=== PATIENT | female | born 1930 | race Caucasian/White ===

== ENCOUNTER 2017-06-19 10:32 | Inpatient (IN) | payer MEDICARE ==
[~2017-06-19] VITALS: Ht 152.4 cm; Wt 52.4 kg
[~2017-06-19 10:32] MED LIST: FLUC100T8 PO; LISI1TAB9 PO; LOVA20TA2 PO; OMEP20CA4 PO; ONDA4TAB6 PO
[2017-06-19] MEDS ORDERED: normal saline 1000ML IV soln IVB ONE ×2 (11:10→12:00)
[2017-06-19 11:28] LABS: BASOPHILS # (AUTO) 0.1 X10'3 (0-0.2); BASOPHILS % (AUTO) 0.4 % (0-1); EOSINOPHILS # (AUTO) 0.2 X10'3 (0-0.9); EOSINOPHILS % (AUTO) 1.8 % (0-6); HEMATOCRIT 34.5 % (35.0-45.0); HEMOGLOBIN 11.3 g/dl (12.0-16.0); LYMPHOCYTES % (AUTO) 7.5 % (21-51); MEAN CORPUSCULAR HEMOGLOBIN 31.1 PG (27.0-31.0); MEAN CORPUSCULAR HGB CONC 32.8 % (33.0-36.5); MEAN CORPUSCULAR VOLUME 94.8 FL (78-98); MEAN PLATELET VOLUME 7.5 FL (7.4-10.4); MONOCYTES # (AUTO) 0.6 X10'3 (0-0.9); MONOCYTES % (AUTO) 4.6 % (2-12); NEUTROPHILS # (AUTO) 11.4 X10'3 (1.8-7.7); NEUTROPHILS % (AUTO) 85.7 % (42-75); PLATELET COUNT 198 X10'3 (140-440); RED BLOOD COUNT 3.64 X10'6 (4.20-5.60); RED CELL DISTRIBUTION WIDTH 13.8 % (11.5-14.5); WHITE BLOOD COUNT 13.3 X10'3 (4.5-11.0)
[2017-06-19 11:41] LABS: ALANINE AMINOTRANSFERASE 330 U/L (12-78); ALBUMIN 3.4 G/DL (3.4-5.0); ALBUMIN/GLOBULIN RATIO 1.1 (1.1-1.5); ALKALINE PHOSPHATASE 63 IU/L (46-116); ANION GAP 16 (8-16); ASPARTATE AMINO TRANSFERASE 963 U/L (10-37); BILIRUBIN,TOTAL 0.5 MG/DL (0.1-1.0); BLOOD UREA NITROGEN 69 MG/DL (7-18); BUN/CREATININE RATIO 24.3 (6.6-38.0); CALCIUM 9.4 MG/DL (8.5-10.1); CHLORIDE 108 MMOL/L (99-107); CREATININE 2.84 MG/DL (0.40-0.90); GLUCOSE 98 MG/DL (70-104); POTASSIUM 5.3 MMOL/L (3.5-5.1); SODIUM 138 MMOL/L (135-145); TOTAL PROTEIN 6.5 G/DL (6.4-8.2); eGFR 16 ML/MIN
[2017-06-19 11:57] LABS: TOTAL CARBON DIOXIDE 13.9 MMOL/L (24-32)
[2017-06-19 12:13] LABS: CLARITY,URINE CLEAR (Clear); COLOR,URINE YELLOW (Yellow); GLUCOSE, URINE NEGATIVE (Neg); KETONES,URINE NEGATIVE (Neg); LEUKOCYTE ESTERASE ,URINE SMALL (Neg); NITRITES, URINE NEGATIVE (Neg); OCCULT BLOOD,URINE LARGE (Neg); PH,URINE 5.5 (4.8-8.0); PROTEIN,URINE 30 mg/dl (Neg)
[2017-06-19 12:20] LABS: UA COLLECTION TYPE CLN CATCH MIDSTREAM
[2017-06-19 12:21] LABS: BACTERIA,URINE NONE SEEN /HPF (Neg); MUCUS STRANDS FEW /LPF (Neg); RBC,URINE 0-2 /HPF (0-2); SQUAMOUS EPITHELIAL CELL,UR FEW /LPF (FEW); TRANSITIONAL EPI CELLS,URINE MODERATE /HPF; WBC,URINE 0-4 /HPF (0-4)
[2017-06-19] MEDS ORDERED: magnesium 2GM in 50ml NS 50 ML IV PRN (14:10)
[2017-06-19] MEDS ORDERED: magnesium hydroxide 30ml (MOM) UD suspension PO PRN ×2 (14:10→17:20)
[2017-06-19] MEDS ORDERED: acetaminophen 325mg tablet PO PRN ×3 (14:10→17:20)
[2017-06-19] MEDS ORDERED: ondansetron/PF 4mg/2ml inj IV PRN (14:10)
[2017-06-19] MEDS ORDERED: magnesium 4gm in 100ml NS 100 ML IV PRN (14:10)
[2017-06-19] MEDS ORDERED: magnesium Cl slow-release 64mg tablet PO PRN (14:10)
[2017-06-19] MEDS ORDERED: mag hydrox/Alum hydrox/simeth 30ml oral suspension PO PRN (14:10)
[2017-06-19] MEDS ORDERED: bisacodyl 10mg suppository rectal RC PRN (14:10)
[2017-06-19] MEDS ORDERED: potassium Cl 40MEQ/NS 500ml 500 ML IV PRN ×2 (14:10)
[2017-06-19] MEDS ORDERED: potassium Cl 20 mEq SR tablet PO PRN ×4 (14:10→17:20)
[2017-06-19] MEDS ORDERED: sodium bicarbonate (8.4%) inj. 50 MEQ in sodium chloride 0.45% 1,000 ML IV SCH (14:15)
[2017-06-19 14:16] LABS: URINE AMPHETAMINE SCREEN NEGATIVE (Neg); URINE BARBITUATE SCREEN NEGATIVE (Neg); URINE BENZODIAZEPINES SCREEN NEGATIVE (Neg); URINE CANNABINOID SCREEN NEGATIVE (Neg); URINE COCAINE SCREEN NEGATIVE (Neg); URINE METHADONE SCREEN NEGATIVE (Neg); URINE OPIATE SCREEN NEGATIVE (Neg); URINE PHENCYCLIDINE SCREEN NEGATIVE (Neg)
[2017-06-19] MEDS ORDERED: nitroGLYCERIN 0.4mg SUBLingual tab SL PRN (14:35)
[2017-06-19 15:04] LABS: MYOGLOBIN 87520 ng/ml (9-82)
[2017-06-19 15:11] LABS: CREATINE KINASE > 100000 U/L (26-192)
[2017-06-19] MEDS: aspirin 81mg tablet.DR PO SCH (15:18)
[2017-06-19] MEDS ORDERED: furosemide 20 MG/2 ML vial IV SCH (16:35)
[2017-06-19] MEDS ORDERED: sodium bicarbonate (8.4%) 1 mEq/ml syringe IV STA (17:03)
[2017-06-19] MEDS ORDERED: sodium bicarbonate (8.4%) inj. 150 MEQ in dextrose 5%-water 1,000 ML IV SCH (17:05)
[2017-06-19] MEDS ORDERED: morphine sulfate 8 MG/ML SYRINGE IV PRN ×2 (17:20)
[2017-06-19] MEDS: K, MAG and/or Phos replacement - Verify level? MC SCH (17:20)
[2017-06-19 18:09] LABS: PHOSPHORUS 5.2 MG/DL (2.3-4.5)
[2017-06-19 18:22] LABS: MAGNESIUM 1.6 MG/DL (1.5-2.4)
[2017-06-19 18:50] LABS: CREATINE KINASE 23038 U/L (26-192)
[2017-06-19 18:56] LABS: MYOGLOBIN 39888 ng/ml (9-82)
[2017-06-19 19:00] VITALS: BP 140/89
[2017-06-19 20:00] VITALS: BP_SYST 114; BP_SYST 137; BP_SYST 173; BP_SYST 175; BP_DIAS 63; BP_DIAS 76; BP_DIAS 94
[2017-06-19] MEDS ORDERED: pantoprazole 40mg Tablet.DR PO SCH (20:00)
[2017-06-19] MEDS ORDERED: heparin, porcine 5000 units/ml vial SQ SCH (20:00)
[2017-06-19 20:33] LABS: ALBUMIN 2.6 G/DL (3.4-5.0); ANION GAP 11 (8-16); BLOOD UREA NITROGEN 65 MG/DL (7-18); BUN/CREATININE RATIO 27.1 (6.6-38.0); CALCIUM 8.4 MG/DL (8.5-10.1); CHLORIDE 113 MMOL/L (99-107); GLUCOSE 124 MG/DL (70-104); POTASSIUM 5.3 MMOL/L (3.5-5.1); SODIUM 140 MMOL/L (135-145); TOTAL CARBON DIOXIDE 15.7 MMOL/L (24-32); eGFR 19 ML/MIN
[2017-06-19] MEDS: docusate sod 100mg capsule PO SCH (20:34)
[2017-06-19] MEDS: metoprolol tartrate 12.5mg (1/2 tablet) PO SCH (20:34)
[2017-06-19 21:00] VITALS: BP 113/56
[2017-06-19 22:00] VITALS: BP 119/57
[2017-06-19 23:00] VITALS: BP 151/66
[2017-06-19] MEDS: enoxaparin 30mg/0.3ml syringe SUBCUT SCH (23:39)
[2017-06-19 23:49] LABS: ALBUMIN 2.5 G/DL (3.4-5.0); ANION GAP 9 (8-16); BLOOD UREA NITROGEN 61 MG/DL (7-18); BUN/CREATININE RATIO 26.2 (6.6-38.0); CALCIUM 8.4 MG/DL (8.5-10.1); CHLORIDE 114 MMOL/L (99-107); CREATININE 2.33 MG/DL (0.40-0.90); GLUCOSE 89 MG/DL (70-104); MAGNESIUM 1.6 MG/DL (1.5-2.4); PHOSPHORUS 4.8 MG/DL (2.3-4.5); POTASSIUM 5.3 MMOL/L (3.5-5.1); SODIUM 139 MMOL/L (135-145); eGFR 20 ML/MIN
[2017-06-20] VITALS (18 sets, daily range): BP systolic 91–151; BP diastolic 50–79
[2017-06-20] MEDS: sodium bicarbonate (8.4%) inj. 150 MEQ in dextrose 5%-water 1,000 ML IV SCH ×2 (01:45→11:10)
[2017-06-20 02:18] LABS: ALBUMIN 2.6 G/DL (3.4-5.0); ANION GAP 8 (8-16); BLOOD UREA NITROGEN 61 MG/DL (7-18); BUN/CREATININE RATIO 27.4 (6.6-38.0); CALCIUM 8.7 MG/DL (8.5-10.1); CHLORIDE 114 MMOL/L (99-107); CREATININE 2.23 MG/DL (0.40-0.90); GLUCOSE 78 MG/DL (70-104); POTASSIUM 5.3 MMOL/L (3.5-5.1); SODIUM 139 MMOL/L (135-145); TOTAL CARBON DIOXIDE 17.3 MMOL/L (24-32); eGFR 21 ML/MIN
[2017-06-20 03:03] LABS: CREATINE KINASE 15181 U/L (26-192)
[2017-06-20 03:13] LABS: MYOGLOBIN 24393 ng/ml (9-82)
[2017-06-20 04:22] LABS: BASOPHILS % (AUTO) 0.1 % (0-1); EOSINOPHILS # (AUTO) 0.2 X10'3 (0-0.9); EOSINOPHILS % (AUTO) 2.2 % (0-6); HEMOGLOBIN 8.4 g/dl (12.0-16.0); LYMPHOCYTES # (AUTO) 0.8 X10'3 (1.1-4.8); LYMPHOCYTES % (AUTO) 11.2 % (21-51); MEAN CORPUSCULAR HEMOGLOBIN 31.8 PG (27.0-31.0); MEAN CORPUSCULAR HGB CONC 33.7 % (33.0-36.5); MEAN CORPUSCULAR VOLUME 94.3 FL (78-98); MEAN PLATELET VOLUME 8.4 FL (7.4-10.4); MONOCYTES # (AUTO) 0.3 X10'3 (0-0.9); MONOCYTES % (AUTO) 4.3 % (2-12); NEUTROPHILS # (AUTO) 6.1 X10'3 (1.8-7.7); NEUTROPHILS % (AUTO) 82.2 % (42-75); PLATELET COUNT 143 X10'3 (140-440); RED BLOOD COUNT 2.66 X10'6 (4.20-5.60); RED CELL DISTRIBUTION WIDTH 13.4 % (11.5-14.5); WHITE BLOOD COUNT 7.4 X10'3 (4.5-11.0)
[2017-06-20 04:35] LABS: INR 1.1 INR; PARTIAL THROMBOPLASTIN TIME 29 SECONDS (22-32); PROTHROMBIN TIME 10.9 SECONDS (9.0-12.0)
[2017-06-20 04:38] LABS: ALANINE AMINOTRANSFERASE 252 U/L (12-78); ALBUMIN 2.3 G/DL (3.4-5.0); ALBUMIN/GLOBULIN RATIO 0.9 (1.1-1.5); ALKALINE PHOSPHATASE 44 IU/L (46-116); ANION GAP 11 (8-16); ASPARTATE AMINO TRANSFERASE 667 U/L (10-37); BILIRUBIN,TOTAL 0.4 MG/DL (0.1-1.0); BLOOD UREA NITROGEN 61 MG/DL (7-18); BUN/CREATININE RATIO 27.9 (6.6-38.0); CALCIUM 8.2 MG/DL (8.5-10.1); CHLORIDE 113 MMOL/L (99-107); CREATININE 2.19 MG/DL (0.40-0.90); GLUCOSE 96 MG/DL (70-104); MAGNESIUM 1.5 MG/DL (1.5-2.4); POTASSIUM 5.2 MMOL/L (3.5-5.1); SODIUM 141 MMOL/L (135-145); TOTAL CARBON DIOXIDE 17.3 MMOL/L (24-32); TOTAL PROTEIN 4.8 G/DL (6.4-8.2); eGFR 21 ML/MIN
[2017-06-20 06:22] LABS: PHOSPHORUS 3.9 MG/DL (2.3-4.5)
[2017-06-20 06:23] LABS: CREATINE KINASE 12284 U/L (26-192)
[2017-06-20 06:29] LABS: MYOGLOBIN 21601 ng/ml (9-82)
[2017-06-20] MEDS: K and/or MAG REPLACEMENT MC SCH (08:00)
[2017-06-20] MEDS: K, MAG and/or Phos replacement - Verify level? MC SCH (08:00)
[2017-06-20 08:32] LABS: ALBUMIN 2.5 G/DL (3.4-5.0); ANION GAP 9 (8-16); BLOOD UREA NITROGEN 56 MG/DL (7-18); BUN/CREATININE RATIO 27.1 (6.6-38.0); CALCIUM 8.6 MG/DL (8.5-10.1); CHLORIDE 113 MMOL/L (99-107); CREATININE 2.07 MG/DL (0.40-0.90); GLUCOSE 96 MG/DL (70-104); MAGNESIUM 1.6 MG/DL (1.5-2.4); PHOSPHORUS 3.9 MG/DL (2.3-4.5); POTASSIUM 4.7 MMOL/L (3.5-5.1); SODIUM 142 MMOL/L (135-145); eGFR 23 ML/MIN
[2017-06-20] MEDS: metoprolol tartrate 12.5mg (1/2 tablet) PO SCH (08:46)
[2017-06-20] MEDS: enoxaparin 30mg/0.3ml syringe SUBCUT SCH (08:46)
[2017-06-20] MEDS: aspirin 81mg tablet.DR PO SCH (08:47)
[2017-06-20] MEDS: docusate sod 100mg capsule PO SCH ×2 (08:47→20:30)
[2017-06-20] MEDS: pantoprazole 40mg Tablet.DR PO SCH (08:47)
[2017-06-20 08:50] LABS: CREATINE KINASE 12995 U/L (26-192)
[2017-06-20 09:12] LABS: MYOGLOBIN 23802 ng/ml (9-82)
[2017-06-20] MEDS: sodium bicarbonate (8.4%) inj. 100 MEQ in dextrose 5%-water 1,000 ML IV SCH (12:19)
[2017-06-21] VITALS: BP 122/59
[2017-06-21] MEDS: sodium bicarbonate (8.4%) inj. 100 MEQ in dextrose 5%-water 1,000 ML IV SCH ×2 (02:59→17:45)
[2017-06-21 03:03] LABS: PARTIAL THROMBOPLASTIN TIME 24 SECONDS (22-32); PROTHROMBIN TIME 10.5 SECONDS (9.0-12.0)
[2017-06-21 03:36] LABS: ALBUMIN 2.2 G/DL (3.4-5.0); ANION GAP 6 (8-16); BLOOD UREA NITROGEN 47 MG/DL (7-18); BUN/CREATININE RATIO 24.7 (6.6-38.0); CALCIUM 8.1 MG/DL (8.5-10.1); CHLORIDE 109 MMOL/L (99-107); CREATINE KINASE 11312 U/L (26-192); GLUCOSE 118 MG/DL (70-104); MAGNESIUM 1.5 MG/DL (1.5-2.4); PHOSPHORUS 3.3 MG/DL (2.3-4.5); POTASSIUM 4.4 MMOL/L (3.5-5.1); SODIUM 143 MMOL/L (135-145); TOTAL CARBON DIOXIDE 28.4 MMOL/L (24-32); eGFR 25 ML/MIN
[2017-06-21 03:57] LABS: MYOGLOBIN 21917 ng/ml (9-82)
[2017-06-21 07:00] VITALS: BP 155/66
[2017-06-21] MEDS: K and/or MAG REPLACEMENT MC SCH (08:00)
[2017-06-21] MEDS: K, MAG and/or Phos replacement - Verify level? MC SCH (08:00)
[2017-06-21] MEDS: aspirin 81mg tablet.DR PO SCH (08:48)
[2017-06-21] MEDS: traMADol 50MG tablet PO PRN (08:48)
[2017-06-21] MEDS: docusate sod 100mg capsule PO SCH ×2 (08:48→20:00)
[2017-06-21] MEDS: pantoprazole 40mg Tablet.DR PO SCH (08:48)
[2017-06-21] MEDS: enoxaparin 30mg/0.3ml syringe SUBCUT SCH (08:49)
[2017-06-21] MEDS: LACTOSE-FREE FOOD 237ML (BOOST) PO SCH ×3 (08:50→18:25)
[2017-06-21] MEDS ORDERED: pneumococcal 23-VAL P-sac vacc 25 mcg/0.5ml vial IMVAC ONE (10:00)
[2017-06-21 11:00] VITALS: BP 138/75
[2017-06-21 13:44] VITALS: BP_SYST 129; BP_SYST 152; BP_DIAS 70; BP_DIAS 79
[2017-06-21 20:00] VITALS: BP 147/68
[2017-06-21 23:30] VITALS: BP 153/74
[2017-06-22 05:00] VITALS: BP 162/72
[2017-06-22 06:25] LABS: BASOPHILS % (AUTO) 0.3 % (0-1); EOSINOPHILS # (AUTO) 0.2 X10'3 (0-0.9); EOSINOPHILS % (AUTO) 2.2 % (0-6); HEMATOCRIT 25.8 % (35.0-45.0); HEMOGLOBIN 8.8 g/dl (12.0-16.0); LYMPHOCYTES # (AUTO) 0.9 X10'3 (1.1-4.8); LYMPHOCYTES % (AUTO) 10.7 % (21-51); MEAN CORPUSCULAR HEMOGLOBIN 31.7 PG (27.0-31.0); MEAN CORPUSCULAR HGB CONC 33.9 % (33.0-36.5); MEAN CORPUSCULAR VOLUME 93.5 FL (78-98); MEAN PLATELET VOLUME 8.4 FL (7.4-10.4); MONOCYTES # (AUTO) 0.4 X10'3 (0-0.9); MONOCYTES % (AUTO) 4.5 % (2-12); NEUTROPHILS # (AUTO) 6.8 X10'3 (1.8-7.7); NEUTROPHILS % (AUTO) 82.3 % (42-75); PLATELET COUNT 147 X10'3 (140-440); RED BLOOD COUNT 2.76 X10'6 (4.20-5.60); RED CELL DISTRIBUTION WIDTH 13.8 % (11.5-14.5); WHITE BLOOD COUNT 8.2 X10'3 (4.5-11.0)
[2017-06-22 06:35] LABS: PARTIAL THROMBOPLASTIN TIME 26 SECONDS (22-32); PROTHROMBIN TIME 10.6 SECONDS (9.0-12.0)
[2017-06-22 06:55] LABS: ALANINE AMINOTRANSFERASE 378 U/L (12-78); ALBUMIN 2.2 G/DL (3.4-5.0); ALBUMIN/GLOBULIN RATIO 0.8 (1.1-1.5); ALKALINE PHOSPHATASE 50 IU/L (46-116); ANION GAP 4 (8-16); ASPARTATE AMINO TRANSFERASE 1146 U/L (10-37); BILIRUBIN,TOTAL 0.4 MG/DL (0.1-1.0); BLOOD UREA NITROGEN 37 MG/DL (7-18); BUN/CREATININE RATIO 20.6 (6.6-38.0); CALCIUM 8.7 MG/DL (8.5-10.1); CHLORIDE 104 MMOL/L (99-107); GLUCOSE 92 MG/DL (70-104); MAGNESIUM 1.2 MG/DL (1.5-2.4); PHOSPHORUS 2.9 MG/DL (2.3-4.5); POTASSIUM 4.7 MMOL/L (3.5-5.1); SODIUM 138 MMOL/L (135-145); TOTAL PROTEIN 5.1 G/DL (6.4-8.2); eGFR 27 ML/MIN
[2017-06-22] MEDS: K and/or MAG REPLACEMENT MC SCH ×2 (07:23→08:53)
[2017-06-22] MEDS: K, MAG and/or Phos replacement - Verify level? MC SCH ×2 (07:23→08:54)
[2017-06-22] MEDS: LACTOSE-FREE FOOD 237ML (BOOST) PO SCH ×3 (08:53→19:30)
[2017-06-22] MEDS: pantoprazole 40mg Tablet.DR PO SCH (09:07)
[2017-06-22] MEDS: docusate sod 100mg capsule PO SCH ×2 (09:07→20:40)
[2017-06-22] MEDS: aspirin 81mg tablet.DR PO SCH (09:07)
[2017-06-22] MEDS: enoxaparin 30mg/0.3ml syringe SUBCUT SCH (09:08)
[2017-06-22] MEDS: sodium bicarbonate (8.4%) inj. 100 MEQ in dextrose 5%-water 1,000 ML IV SCH (10:41)
[2017-06-22 11:00] VITALS: BP 145/70
[2017-06-22 11:05] VITALS: BP 162/72
[2017-06-22] MEDS: CefTRIAXone 1 gm/50ml D5W ADV 50 ML IV SCH (12:46)
[2017-06-22 20:00] VITALS: BP_SYST 154; BP_SYST 164; BP_DIAS 70; BP_DIAS 77
[2017-06-23] VITALS: BP 180/84
[2017-06-23] MEDS: normal saline 1000ml 1,000 ML IV SCH ×3 (01:59→22:08)
[2017-06-23 02:00] VITALS: BP 144/74
[2017-06-23 06:26] LABS: EOSINOPHILS % (AUTO) 2.5 % (0-6); HEMATOCRIT 27.3 % (35.0-45.0); HEMOGLOBIN 9.2 g/dl (12.0-16.0); LYMPHOCYTES % (AUTO) 7.5 % (21-51); MEAN CORPUSCULAR HEMOGLOBIN 31.5 PG (27.0-31.0); MEAN CORPUSCULAR HGB CONC 33.7 % (33.0-36.5); MEAN CORPUSCULAR VOLUME 93.5 FL (78-98); MEAN PLATELET VOLUME 8.4 FL (7.4-10.4); MONOCYTES % (AUTO) 3.3 % (2-12); NEUTROPHILS % (AUTO) 86.6 % (42-75); PLATELET COUNT 168 X10'3 (140-440); RED BLOOD COUNT 2.92 X10'6 (4.20-5.60); RED CELL DISTRIBUTION WIDTH 13.6 % (11.5-14.5); WHITE BLOOD COUNT 9.9 X10'3 (4.5-11.0)
[2017-06-23 06:27] LABS: BASOPHILS % (AUTO) 0.1 % (0-1); EOSINOPHILS # (AUTO) 0.2 X10'3 (0-0.9); LYMPHOCYTES # (AUTO) 0.7 X10'3 (1.1-4.8); MONOCYTES # (AUTO) 0.3 X10'3 (0-0.9); NEUTROPHILS # (AUTO) 8.6 X10'3 (1.8-7.7)
[2017-06-23 06:28] LABS: PARTIAL THROMBOPLASTIN TIME 27 SECONDS (22-32); PROTHROMBIN TIME 10.5 SECONDS (9.0-12.0)
[2017-06-23 06:41] LABS: ALANINE AMINOTRANSFERASE 494 U/L (12-78); ALBUMIN 2.3 G/DL (3.4-5.0); ALBUMIN/GLOBULIN RATIO 0.7 (1.1-1.5); ALKALINE PHOSPHATASE 58 IU/L (46-116); ANION GAP 8 (8-16); ASPARTATE AMINO TRANSFERASE 1311 U/L (10-37); BILIRUBIN,TOTAL 0.5 MG/DL (0.1-1.0); BLOOD UREA NITROGEN 35 MG/DL (7-18); BUN/CREATININE RATIO 20.2 (6.6-38.0); CALCIUM 9.2 MG/DL (8.5-10.1); CHLORIDE 102 MMOL/L (99-107); CREATININE 1.73 MG/DL (0.40-0.90); GLUCOSE 88 MG/DL (70-104); MAGNESIUM 1.3 MG/DL (1.5-2.4); PHOSPHORUS 3.8 MG/DL (2.3-4.5); POTASSIUM 4.5 MMOL/L (3.5-5.1); SODIUM 138 MMOL/L (135-145); TOTAL CARBON DIOXIDE 28.1 MMOL/L (24-32); TOTAL PROTEIN 5.5 G/DL (6.4-8.2); eGFR 28 ML/MIN
[2017-06-23 07:43] LABS: CREATINE KINASE 25129 U/L (26-192)
[2017-06-23 08:00] VITALS: BP 162/83
[2017-06-23] MEDS: CefTRIAXone 1 gm/50ml D5W ADV 50 ML IV SCH (08:16)
[2017-06-23] MEDS: enoxaparin 30mg/0.3ml syringe SUBCUT SCH (08:18)
[2017-06-23] MEDS: LACTOSE-FREE FOOD 237ML (BOOST) PO SCH ×3 (08:21→18:27)
[2017-06-23] MEDS: aspirin 81mg tablet.DR PO SCH (08:22)
[2017-06-23] MEDS: docusate sod 100mg capsule PO SCH ×2 (08:22→20:20)
[2017-06-23] MEDS: pantoprazole 40mg Tablet.DR PO SCH (08:22)
[2017-06-23 09:00] VITALS: BP_SYST 135; BP_SYST 139; BP_DIAS 75; BP_DIAS 76
[2017-06-23] MEDS ORDERED: normal saline 1000ml 1,000 ML IV ONE (10:45)
[2017-06-23 11:00] VITALS: BP 139/75
[2017-06-23 20:00] VITALS: BP 152/72
[2017-06-23] MEDS: magnesium Cl slow-release 64mg tablet PO PRN (23:03)
[2017-06-24] VITALS: BP 163/82
[2017-06-24] MEDS: normal saline 1000ml 1,000 ML IV SCH ×3 (05:03→21:46)
[2017-06-24 05:25] LABS: BASOPHILS % (AUTO) 0.2 % (0-1); EOSINOPHILS # (AUTO) 0.3 X10'3 (0-0.9); EOSINOPHILS % (AUTO) 3.1 % (0-6); HEMOGLOBIN 9.3 g/dl (12.0-16.0); LYMPHOCYTES # (AUTO) 0.8 X10'3 (1.1-4.8); LYMPHOCYTES % (AUTO) 9.7 % (21-51); MEAN CORPUSCULAR HGB CONC 33.1 % (33.0-36.5); MEAN CORPUSCULAR VOLUME 93.7 FL (78-98); MEAN PLATELET VOLUME 8.2 FL (7.4-10.4); MONOCYTES # (AUTO) 0.3 X10'3 (0-0.9); MONOCYTES % (AUTO) 3.5 % (2-12); NEUTROPHILS # (AUTO) 7.1 X10'3 (1.8-7.7); NEUTROPHILS % (AUTO) 83.5 % (42-75); PLATELET COUNT 182 X10'3 (140-440); RED BLOOD COUNT 2.99 X10'6 (4.20-5.60); RED CELL DISTRIBUTION WIDTH 13.4 % (11.5-14.5); WHITE BLOOD COUNT 8.5 X10'3 (4.5-11.0)
[2017-06-24 05:28] LABS: PARTIAL THROMBOPLASTIN TIME 25 SECONDS (22-32); PROTHROMBIN TIME 10.1 SECONDS (9.0-12.0)
[2017-06-24] MEDS ORDERED: LORazepam 2 mg/ml vial IM ONE (05:40)
[2017-06-24 05:44] LABS: ALANINE AMINOTRANSFERASE 568 U/L (12-78); ALBUMIN 2.3 G/DL (3.4-5.0); ALBUMIN/GLOBULIN RATIO 0.7 (1.1-1.5); ALKALINE PHOSPHATASE 60 IU/L (46-116); ANION GAP 10 (8-16); ASPARTATE AMINO TRANSFERASE 1092 U/L (10-37); BILIRUBIN,TOTAL 0.4 MG/DL (0.1-1.0); BLOOD UREA NITROGEN 34 MG/DL (7-18); BUN/CREATININE RATIO 20.7 (6.6-38.0); CALCIUM 9.3 MG/DL (8.5-10.1); CHLORIDE 108 MMOL/L (99-107); CREATININE 1.64 MG/DL (0.40-0.90); GLUCOSE 82 MG/DL (70-104); MAGNESIUM 1.2 MG/DL (1.5-2.4); PHOSPHORUS 3.7 MG/DL (2.3-4.5); POTASSIUM 4.7 MMOL/L (3.5-5.1); SODIUM 140 MMOL/L (135-145); TOTAL PROTEIN 5.6 G/DL (6.4-8.2); eGFR 30 ML/MIN
[2017-06-24] MEDS ORDERED: LORazepam 2 mg/ml vial IV ONE (06:10)
[2017-06-24] MEDS: pantoprazole 40mg Tablet.DR PO SCH (07:30)
[2017-06-24 08:00] VITALS: BP 150/106
[2017-06-24] MEDS: docusate sod 100mg capsule PO SCH ×2 (08:00→20:00)
[2017-06-24] MEDS: aspirin 81mg tablet.DR PO SCH (08:00)
[2017-06-24] MEDS: enoxaparin 30mg/0.3ml syringe SUBCUT SCH (08:00)
[2017-06-24] MEDS: CefTRIAXone 1 gm/50ml D5W ADV 50 ML IV SCH (08:44)
[2017-06-24] MEDS: LACTOSE-FREE FOOD 237ML (BOOST) PO SCH ×3 (08:45→18:09)
[2017-06-24] MEDS: magnesium Cl slow-release 64mg tablet PO PRN (09:09)
[2017-06-24 09:42] LABS: CREATINE KINASE 27707 U/L (26-192)
[2017-06-24 12:03] VITALS: BP 146/97
[2017-06-24] MEDS: traMADol 50MG tablet PO PRN (14:07)
[2017-06-24] MEDS ORDERED: normal saline 1000ml 1,000 ML IV ONE (14:40)
[2017-06-24] MEDS: lactobacillus rhamnosus 10,000 MMU CELLS/CAPSULE PO SCH (17:56)
[2017-06-24 20:00] VITALS: BP_SYST 152; BP_SYST 157; BP_DIAS 74; BP_DIAS 78
[2017-06-25] VITALS: BP_SYST 163; BP_SYST 171; BP_DIAS 80; BP_DIAS 96
[2017-06-25] MEDS: normal saline 1000ml 1,000 ML IV SCH ×5 (01:37→19:52)
[2017-06-25 05:33] LABS: PARTIAL THROMBOPLASTIN TIME 24 SECONDS (22-32); PROTHROMBIN TIME 10.7 SECONDS (9.0-12.0)
[2017-06-25 06:13] LABS: MAGNESIUM 1.1 MG/DL (1.5-2.4); PHOSPHORUS 3.3 MG/DL (2.3-4.5)
[2017-06-25 07:35] VITALS: BP 151/83
[2017-06-25] MEDS: LACTOSE-FREE FOOD 237ML (BOOST) PO SCH ×3 (08:00→18:17)
[2017-06-25] MEDS: docusate sod 100mg capsule PO SCH ×2 (10:22→19:48)
[2017-06-25] MEDS: CefTRIAXone 1 gm/50ml D5W ADV 50 ML IV SCH (10:25)
[2017-06-25] MEDS: lactobacillus rhamnosus 10,000 MMU CELLS/CAPSULE PO SCH ×2 (10:25→18:51)
[2017-06-25] MEDS: aspirin 81mg tablet.DR PO SCH (10:26)
[2017-06-25] MEDS: pantoprazole 40mg Tablet.DR PO SCH (10:26)
[2017-06-25] MEDS: magnesium Cl slow-release 64mg tablet PO PRN (10:27)
[2017-06-25] MEDS: enoxaparin 30mg/0.3ml syringe SUBCUT SCH (10:30)
[2017-06-25 11:00] VITALS: BP 160/84
[2017-06-25 11:35] LABS: ALANINE AMINOTRANSFERASE 564 U/L (12-78); ALBUMIN 2.4 G/DL (3.4-5.0); ALBUMIN/GLOBULIN RATIO 0.8 (1.1-1.5); ALKALINE PHOSPHATASE 57 IU/L (46-116); ASPARTATE AMINO TRANSFERASE 702 U/L (10-37); BILIRUBIN,TOTAL 0.3 MG/DL (0.1-1.0); BLOOD UREA NITROGEN 32 MG/DL (7-18); BUN/CREATININE RATIO 23.7 (6.6-38.0); CALCIUM 9.3 MG/DL (8.5-10.1); CHLORIDE 109 MMOL/L (99-107); CREATININE 1.35 MG/DL (0.40-0.90); POTASSIUM 4.6 MMOL/L (3.5-5.1); TOTAL CARBON DIOXIDE 21.5 MMOL/L (24-32); TOTAL PROTEIN 5.6 G/DL (6.4-8.2); eGFR 37 ML/MIN
[2017-06-25 11:40] LABS: ANION GAP 10 (8-16); GLUCOSE 104 MG/DL (70-104); SODIUM 140 MMOL/L (135-145)
[2017-06-25 12:39] LABS: CREATINE KINASE 11960 U/L (26-192)
[2017-06-25 14:00] VITALS: BP_SYST 124; BP_SYST 154; BP_SYST 187; BP_DIAS 77; BP_DIAS 79; BP_DIAS 87
[2017-06-25] MEDS ORDERED: normal saline 1000ml 1,000 ML IV ONE (14:35)
[2017-06-25 18:30] VITALS: BP 144/72
[2017-06-25] MEDS: traMADol 50MG tablet PO PRN (22:36)
[2017-06-26] VITALS: BP_SYST 123; BP_SYST 151; BP_SYST 163; BP_DIAS 74; BP_DIAS 79; BP_DIAS 80
[2017-06-26] MEDS: diphenhydrAMINE 25mg capsule PO PRN (00:30)
[2017-06-26] MEDS: normal saline 1000ml 1,000 ML IV SCH ×5 (03:13→21:44)
[2017-06-26 05:39] LABS: PARTIAL THROMBOPLASTIN TIME 22 SECONDS (22-32); PROTHROMBIN TIME 10.8 SECONDS (9.0-12.0)
[2017-06-26 06:00] LABS: ALANINE AMINOTRANSFERASE 456 U/L (12-78); ALBUMIN 2.1 G/DL (3.4-5.0); ALBUMIN/GLOBULIN RATIO 0.8 (1.1-1.5); ALKALINE PHOSPHATASE 48 IU/L (46-116); ANION GAP 10 (8-16); ASPARTATE AMINO TRANSFERASE 387 U/L (10-37); BILIRUBIN,TOTAL 0.3 MG/DL (0.1-1.0); BLOOD UREA NITROGEN 31 MG/DL (7-18); BUN/CREATININE RATIO 23.7 (6.6-38.0); CALCIUM 8.8 MG/DL (8.5-10.1); CHLORIDE 113 MMOL/L (99-107); CREATINE KINASE 4557 U/L (26-192); CREATININE 1.31 MG/DL (0.40-0.90); GLUCOSE 85 MG/DL (70-104); MAGNESIUM 1.1 MG/DL (1.5-2.4); PHOSPHORUS 3.2 MG/DL (2.3-4.5); POTASSIUM 4.8 MMOL/L (3.5-5.1); SODIUM 142 MMOL/L (135-145); TOTAL CARBON DIOXIDE 19.4 MMOL/L (24-32); TOTAL PROTEIN 4.9 G/DL (6.4-8.2); eGFR 38 ML/MIN
[2017-06-26 07:00] VITALS: BP 154/84
[2017-06-26] MEDS: lactobacillus rhamnosus 10,000 MMU CELLS/CAPSULE PO SCH ×2 (07:40→17:33)
[2017-06-26] MEDS: pantoprazole 40mg Tablet.DR PO SCH (07:40)
[2017-06-26] MEDS: docusate sod 100mg capsule PO SCH ×2 (07:41→20:00)
[2017-06-26] MEDS: CefTRIAXone 1 gm/50ml D5W ADV 50 ML IV SCH (07:41)
[2017-06-26] MEDS: enoxaparin 30mg/0.3ml syringe SUBCUT SCH (07:41)
[2017-06-26] MEDS: aspirin 81mg tablet.DR PO SCH (07:41)
[2017-06-26] MEDS: LACTOSE-FREE FOOD 237ML (BOOST) PO SCH ×3 (08:11→18:23)
[2017-06-26] MEDS: magnesium Cl slow-release 64mg tablet PO PRN (11:55)
[2017-06-26] MEDS ORDERED: magnesium 2GM in 50ml NS 50 ML IV PRN ×2 (12:00→12:05)
[2017-06-26] MEDS ORDERED: magnesium 4gm in 100ml NS 100 ML IV PRN (12:05)
[2017-06-26 14:20] VITALS: BP_SYST 111; BP_SYST 150; BP_SYST 162; BP_DIAS 72; BP_DIAS 80; BP_DIAS 96
[2017-06-26 19:30] VITALS: BP_SYST 126; BP_SYST 152; BP_SYST 157; BP_DIAS 70; BP_DIAS 73; BP_DIAS 78
[2017-06-26 23:00] VITALS: BP 170/88
[2017-06-26] MEDS: traMADol 50MG tablet PO PRN (23:41)
[2017-06-27] MEDS: diphenhydrAMINE 25mg capsule PO PRN (01:16)
[2017-06-27] MEDS: normal saline 1000ml 1,000 ML IV SCH ×3 (05:13→20:17)
[2017-06-27 05:44] LABS: MAGNESIUM 2.4 MG/DL (1.5-2.4); POTASSIUM 4.5 MMOL/L (3.5-5.1)
[2017-06-27 06:40] VITALS: BP 159/90
[2017-06-27] MEDS: aspirin 81mg tablet.DR PO SCH (07:25)
[2017-06-27] MEDS: pantoprazole 40mg Tablet.DR PO SCH (07:25)
[2017-06-27] MEDS: lactobacillus rhamnosus 10,000 MMU CELLS/CAPSULE PO SCH ×2 (07:25→17:29)
[2017-06-27] MEDS: docusate sod 100mg capsule PO SCH ×2 (07:25→20:20)
[2017-06-27] MEDS: enoxaparin 30mg/0.3ml syringe SUBCUT SCH (07:26)
[2017-06-27] MEDS: CefTRIAXone 1 gm/50ml D5W ADV 50 ML IV SCH (07:26)
[2017-06-27] MEDS: LACTOSE-FREE FOOD 237ML (BOOST) PO SCH ×3 (08:06→18:23)
[2017-06-27 11:00] VITALS: BP 134/69
[2017-06-27 12:41] LABS: ALBUMIN 2.6 G/DL (3.4-5.0); ANION GAP 11 (8-16); BLOOD UREA NITROGEN 25 MG/DL (7-18); BUN/CREATININE RATIO 18.4 (6.6-38.0); CALCIUM 9.1 MG/DL (8.5-10.1); CHLORIDE 110 MMOL/L (99-107); CREATINE KINASE 1865 U/L (26-192); CREATININE 1.36 MG/DL (0.40-0.90); GLUCOSE 92 MG/DL (70-104); POTASSIUM 4.5 MMOL/L (3.5-5.1); SODIUM 141 MMOL/L (135-145); TOTAL CARBON DIOXIDE 20.2 MMOL/L (24-32); eGFR 37 ML/MIN
[2017-06-27 19:20] VITALS: BP 160/73
[2017-06-27] MEDS: traMADol 50MG tablet PO PRN (19:30)
[2017-06-27 20:00] VITALS: BP_SYST 127; BP_SYST 138; BP_SYST 160; BP_DIAS 68; BP_DIAS 73; BP_DIAS 78
[2017-06-28 05:54] LABS: MAGNESIUM 1.8 MG/DL (1.5-2.4)
[2017-06-28 07:29] VITALS: BP 152/81
[2017-06-28] MEDS: CefTRIAXone 1 gm/50ml D5W ADV 50 ML IV SCH (07:45)
[2017-06-28] MEDS: lactobacillus rhamnosus 10,000 MMU CELLS/CAPSULE PO SCH ×2 (07:45→17:01)
[2017-06-28] MEDS: aspirin 81mg tablet.DR PO SCH (07:45)
[2017-06-28] MEDS: pantoprazole 40mg Tablet.DR PO SCH (07:46)
[2017-06-28] MEDS: docusate sod 100mg capsule PO SCH ×2 (07:46→21:28)
[2017-06-28] MEDS: enoxaparin 30mg/0.3ml syringe SUBCUT SCH (07:47)
[2017-06-28] MEDS: LACTOSE-FREE FOOD 237ML (BOOST) PO SCH ×3 (07:53→18:03)
[2017-06-28] MEDS: sodium bicarbonate (8.4%) inj. 100 MEQ in dextrose 5%-water 1,000 ML IV SCH (09:12)
[2017-06-28] MEDS: normal saline 1000ml 1,000 ML IV SCH ×2 (09:37→17:39)
[2017-06-28 10:39] VITALS: BP 153/80
[2017-06-28 11:23] LABS: ALBUMIN 2.2 G/DL (3.4-5.0); ANION GAP 10 (8-16); BLOOD UREA NITROGEN 25 MG/DL (7-18); BUN/CREATININE RATIO 18.4 (6.6-38.0); CALCIUM 9.1 MG/DL (8.5-10.1); CHLORIDE 112 MMOL/L (99-107); CREATINE KINASE 833 U/L (26-192); CREATININE 1.36 MG/DL (0.40-0.90); GLUCOSE 83 MG/DL (70-104); SODIUM 140 MMOL/L (135-145); TOTAL CARBON DIOXIDE 18.4 MMOL/L (24-32); eGFR 37 ML/MIN
[2017-06-28] MEDS: traMADol 50MG tablet PO PRN (12:36)
[2017-06-28 19:00] VITALS: BP 135/91
[2017-06-28] MEDS: LORazepam 1 MG tablet PO PRN (21:28)
[2017-06-29] VITALS: BP 150/79
[2017-06-29] MEDS: LORazepam 1 MG tablet PO PRN ×2 (03:06→10:01)
[2017-06-29 07:49] LABS: ALANINE AMINOTRANSFERASE 280 U/L (12-78); ALBUMIN 2.7 G/DL (3.4-5.0); ALBUMIN/GLOBULIN RATIO 0.9 (1.1-1.5); ALKALINE PHOSPHATASE 64 IU/L (46-116); ANION GAP 10 (8-16); ASPARTATE AMINO TRANSFERASE 102 U/L (10-37); BILIRUBIN,TOTAL 0.4 MG/DL (0.1-1.0); BLOOD UREA NITROGEN 21 MG/DL (7-18); BUN/CREATININE RATIO 14.6 (6.6-38.0); CALCIUM 9.8 MG/DL (8.5-10.1); CHLORIDE 111 MMOL/L (99-107); CREATININE 1.44 MG/DL (0.40-0.90); GLUCOSE 84 MG/DL (70-104); MAGNESIUM 1.8 MG/DL (1.5-2.4); POTASSIUM 4.9 MMOL/L (3.5-5.1); SODIUM 141 MMOL/L (135-145); TOTAL CARBON DIOXIDE 20.2 MMOL/L (24-32); TOTAL PROTEIN 5.8 G/DL (6.4-8.2); eGFR 35 ML/MIN
[2017-06-29 08:00] VITALS: BP 167/82
[2017-06-29] MEDS: enoxaparin 30mg/0.3ml syringe SUBCUT SCH (08:28)
[2017-06-29] MEDS: lactobacillus rhamnosus 10,000 MMU CELLS/CAPSULE PO SCH ×2 (08:28→16:50)
[2017-06-29] MEDS: docusate sod 100mg capsule PO SCH ×2 (08:28→21:21)
[2017-06-29] MEDS: pantoprazole 40mg Tablet.DR PO SCH (08:28)
[2017-06-29] MEDS: aspirin 81mg tablet.DR PO SCH (08:28)
[2017-06-29] MEDS: LACTOSE-FREE FOOD 237ML (BOOST) PO SCH ×3 (08:31→18:03)
[2017-06-29] MEDS: traMADol 50MG tablet PO PRN (10:02)
[2017-06-29] MEDS ORDERED: LORazepam 1 MG tablet PO PRN (11:05)
[2017-06-29 11:06] LABS: CREATINE KINASE 547 U/L (26-192)
[2017-06-29] MEDS ORDERED: QUEtiapine 25mg tablet PO PRN (11:15)
[2017-06-29 11:48] LABS: CLARITY,URINE CLEAR (Clear); COLOR,URINE STRAW (Yellow); GLUCOSE, URINE NEGATIVE (Neg); KETONES,URINE NEGATIVE (Neg); LEUKOCYTE ESTERASE ,URINE NEGATIVE (Neg); NITRITES, URINE NEGATIVE (Neg); OCCULT BLOOD,URINE TRACE-INTACT (Neg); PROTEIN,URINE NEGATIVE (Neg); UROBILINOGEN,URINE 0.2 E.U/dL (0.2-1.0)
[2017-06-29 11:49] LABS: UA COLLECTION TYPE NON-SPECIFIED
[2017-06-29 11:51] VITALS: BP 163/98
[2017-06-29 12:00] LABS: MUCUS STRANDS FEW /LPF (Neg); SQUAMOUS EPITHELIAL CELL,UR FEW /LPF (FEW)
[2017-06-29 12:04] LABS: BACTERIA,URINE FEW /HPF (Neg); RBC,URINE NONE SEEN /HPF (0-2); WBC,URINE 0-4 /HPF (0-4)
[2017-06-29 20:00] VITALS: BP 169/99
[2017-06-30] VITALS: BP 192/102
[2017-06-30] MEDS: aspirin 81mg tablet.DR PO SCH (08:09)
[2017-06-30] MEDS: pantoprazole 40mg Tablet.DR PO SCH (08:09)
[2017-06-30] MEDS: docusate sod 100mg capsule PO SCH (08:09)
[2017-06-30] MEDS: lactobacillus rhamnosus 10,000 MMU CELLS/CAPSULE PO SCH (08:09)
[2017-06-30] MEDS: LACTOSE-FREE FOOD 237ML (BOOST) PO SCH ×2 (08:10→12:49)
[2017-06-30] MEDS: enoxaparin 30mg/0.3ml syringe SUBCUT SCH (08:10)
[2017-06-30 08:25] LABS: ALBUMIN 2.8 G/DL (3.4-5.0); ANION GAP 13 (8-16); BLOOD UREA NITROGEN 18 MG/DL (7-18); BUN/CREATININE RATIO 12.9 (6.6-38.0); CALCIUM 9.5 MG/DL (8.5-10.1); CHLORIDE 106 MMOL/L (99-107); CREATINE KINASE 332 U/L (26-192); CREATININE 1.39 MG/DL (0.40-0.90); GLUCOSE 62 MG/DL (70-104); POTASSIUM 4.3 MMOL/L (3.5-5.1); SODIUM 139 MMOL/L (135-145); TOTAL CARBON DIOXIDE 20.3 MMOL/L (24-32); eGFR 36 ML/MIN
[2017-06-30 08:33] VITALS: BP 171/86
[2017-06-30 09:57] VITALS: BP 156/76
[2017-06-30] MEDS: traMADol 50MG tablet PO PRN (10:46)
[2017-06-30 11:34] VITALS: BP 171/86
== END 2017-06-30 14:23 | DRG 683 ==
LOC: ER 10:33 → ED HOLD 14:07 → EDBEDREQ 17:06 → EDBEDREQSVC 17:06 → ICU 2S 18:38 → SUR 3N 06-20 18:27
PROVIDERS: ADMIT Internal Medicine; ATTEND Internal Medicine
DX: N17.9 Acute kidney failure, unspecified (principal); E44.0 Moderate protein-calorie malnutrition; E87.2 Acidosis; E87.5 Hyperkalemia; M62.82 Rhabdomyolysis; R65.10 Systemic inflammatory response syndrome (SIRS) of non-infectious origin without acute organ dysfunction; N39.0 Urinary tract infection, site not specified; B96.20 Unspecified Escherichia coli [E. coli] as the cause of diseases classified elsewhere; E86.0 Dehydration; I25.10 Atherosclerotic heart disease of native coronary artery without angina pectoris; K21.9 Gastro-esophageal reflux disease without esophagitis; E78.5 Hyperlipidemia, unspecified; E78.00 Pure hypercholesterolemia, unspecified; M19.90 Unspecified osteoarthritis, unspecified site; N18.4 Chronic kidney disease, stage 4 (severe); E87.6 Hypokalemia; R41.0 Disorientation, unspecified; I12.9 Hypertensive chronic kidney disease with stage 1 through stage 4 chronic kidney disease, or unspecified chronic kidney disease; R94.5 Abnormal results of liver function studies; T46.6X5A Adverse effect of antihyperlipidemic and antiarteriosclerotic drugs, initial encounter; Z66 Do not resuscitate; Z28.21 Immunization not carried out because of patient refusal; Z90.5 Acquired absence of kidney; Z95.1 Presence of aortocoronary bypass graft; Z95.5 Presence of coronary angioplasty implant and graft; Z88.5 Allergy status to narcotic agent; Z85.820 Personal history of malignant melanoma of skin; Y92.89 Other specified places as the place of occurrence of the external cause; Z68.22 Body mass index [BMI] 22.0-22.9, adult
CPT/HCPCS: 36415; 71010; 76700; 80048; 80053; 80305; 80320; 81001; 82330; 82550; 82553; 83735; 83874; 84100; 84132; 84443; 84484; 85025; 85610; 85730; 86705; 86706; 86709; 86803; 87070; 87077; 87088; 87186; 87340; 93005; 96360; 97110; 97116; 97162; 97530; 97535; 99285; A4353; A6212; A6213; A6257; C1751; J0696; J1650; J2060; J3475; J7030; Q0163